=== PATIENT | female | born 1995 | race Caucasian/White ===

== ENCOUNTER 2016-11-16 14:50 | Inpatient (IN) ==
[2016-11-16] MEDS ORDERED: MEPERIDINE 50 MG/1 ML VIAL IV PRN (15:10)
[2016-11-16 15:30] LABS: Basophils % 0.4 % (0.0-0.8); Eosinophils # 0.1 10*3/uL (0.0-0.87); Eosinophils % 0.9 % (0.00-10.9); Hematocrit 34.2 VOL% (35.7-47.0); Hemoglobin 11.6 GM/DL (12.0-16.0); Immature Granulocytes % 0.8 %; Immature Granulocytes Absolute 0.07 #; Lymphocytes # 1.6 10*3/uL (1.4-4.0); Lymphocytes % 18.4 % (21.3-54.2); Mean Corpuscular HGB Conc 33.9 GM/DL (32-36); Mean Corpuscular Hemoglobin 26 PG (27-34); Mean Corpuscular Volume 77.7 FL (87-102); Mean Platelet Volume 11.4 FL (9.6-12.0); Monocytes # 0.7 10*3/uL (0.11-0.8); Monocytes % 8.3 % (1.7-12.7); Neutrophils % 71.2 % (38.7-73.9); Platelet Count 227 T/CUMM (130-400); Red Cell Distribution Width 13.2 % (9.3-17.3); White Blood Count 8.4 T/CUMM (4-12)
[2016-11-16] MEDS: LACTATED RINGERS 1,000 ML IV SCH ×2 (15:30→20:17)
[2016-11-16 16:09] LABS: Alanine Aminotransferase 24 U/L (13-56); Albumin 2.6 G/DL (3.4-5.0); Alkaline Phosphatase 139 U/L (45-117); Aspartate Amino Transferase 18 U/L (0-37); Bilirubin,Total < 0.39 MG/DL (0.2-1.0); Blood Urea Nitrogen 10 MG/DL (7-18); Calcium 8.6 MG/DL (8.5-10.1); Glucose 104 MG/DL (74-106); Osmolality,Calculated 275.5 MOS/KG (273-304); Sodium 139 MMOL/L (136-145); Total Protein 6.2 G/DL (6.4-8.3); Uric Acid 4.2 MG/DL (2.6-6.0)
[2016-11-16] MEDS ORDERED: DINOPROSTONE VAG GEL 10 MG SYRINGE VAG ONE (16:38)
--- NOTE | 2016-11-16 17:06 | OB/GYN History & Physical ---
History of Present Illness Chief complaint: In for elective induction of labor due to term . History of present illness: Ms. Quezada is a 21 year old female who is a 2 para 1 AB 1. Her RUPAL is for estimated gestational age of 39 weeks. The patient presents for elective induction of labor. The risk and benefits have been thoroughly discussed with this patient and significant other, plan of care has been discussed with Dr. Yañez and all parties are in agreement with plan. The patient and her care at the [facility] and she received routine care her course was uneventful. labs: She is O+, antibody screen is negative, RPR is nonreactive, hepatitis B negative, HIV is negative, GC chlamydia cultures negative, and GBS culture negative. Review of systems is negative with exception of above. Home Medications Medication Instructions Recorded Confirmed Type Vit No.124/Iron/Folic 1 tablet PO DAILY MDD one tab 08/23/16 08/23/16 History [ Vitamin Tablet] Allergies Allergy/AdvReac Type Severity Reaction Status Date / Time bacitracin Allergy Mild RASH Verified 10/08/16 21:50 [From Neosporin ([id number])] Neomycin Allergy Mild RASH Verified 10/08/16 21:50 [From Neosporin ([id number])] polymyxin B Allergy Mild RASH Verified 10/08/16 21:50 [From Neosporin ([id number])] 12 point system: reviewed and no additional remarkable complaints except as stated Medical,Surgical,& Family Hx - Medical History Psychological: History of: Anxiety Disorders Neurology: History of: Migraine, Seizures (at age 12) Reproductive: History of: Complication (MISCARRIAGE X1), Sexually Transmitted Disorders (2013 chlamydia) - Surgical History Reproductive Surgeries: Surgical HX of;: Dilation and Curettage () Orthopedic Surgeries: Surgical HX of;: Orthopedic Surgery (right knee scope) - Family History Family History: Reports;: Family Cancer (maternal and paternal grandmother), Family Diabetes (paternal grandmother), Family Heart Disease (paternal grandfather), Family Stroke (maternal grandmother) - Social History Smoking Status: Former smoker Marital Status: Single Lives With:: Significant Other 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 capacity: 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 General appearance: no acute distress - Antepartum / Post Antepartum Exam Cervix - Dilatation: 2 cm Effacement: 50% Station: -2 Rupture: Intact Presentation: Vertex Heart Rate: 140 Breast: bilateral: normal Abdomen obstetrics: Present: bowel sounds normal Vagina: Present: normal moisture Uterus exam: Present: enlarged Anus/Rectum: Present: normal perianal skin - Respiratory Respiratory exam: Present: clear to auscultation bilaterally - Cardiovascular Cardiovascular exam: Present: regular rate and rhythm - GI/Abdominal GI/Abdominal exam: Present: normal bowel sounds, soft - Extremities Exam Extremities exam: Present: normal inspection - Back Exam Back exam: Present: normal inspection - Neurological Exam Neurological exam: Present: alert, oriented X3 - Psychiatric Psychiatric exam: Present: normal affect, normal mood - Skin Skin exam: Present: normal color, warm Assessment and Plan (1) Term Status: Acute Assessment and plan: Admit IV fluids Prostin gel per protocol IV Pitocin per protocol if indicated Artificial rupture membranes when appropriate Internal monitors if indicated Epidural anesthesia if desired Anticipate . Current Visit: Yes Results - Labs CBC & BMP: 11/16/16 15:24 11/16/16 15:23
[2016-11-16] MEDS ORDERED: FAMOTIDINE 20 MG TABLET PO ONE (17:57)
[2016-11-16] MEDS ORDERED: CITRIC ACID/SODIUM CITRATE 30 ML UDCUP PO ONE (17:57)
[2016-11-16] MEDS ORDERED: PROMETHAZINE 25 MG/1 ML VIAL IM ONE (17:57)
[2016-11-16] MEDS ORDERED: LACTATED RINGERS 1,000 ML IV ONE (17:57)
[2016-11-16] MEDS ORDERED: ePHEDrine 50 MG/ML AMP IV PRN (17:57)
[2016-11-16] MEDS ORDERED: hydrOXYzine HCL 25 MG/1 ML VIAL IM PRN (17:57)
[2016-11-16] MEDS ORDERED: diphenhydrAMINE 50 MG/1 ML VIAL IV PRN ×2 (17:57)
[2016-11-16] MEDS ORDERED: FAMOTIDINE 20 MG/2 ML VIAL IV ONE (18:46)
[2016-11-16] MEDS: fentaNYL 2 MCG/ROPIV 0.2% EPID 150 ML EPIDURAL SCH (19:45)
[2016-11-17] MEDS: LACTATED RINGERS 1,000 ML IV SCH ×2 (02:22→09:49)
[2016-11-17] MEDS ORDERED: OXYTOCIN/LR 20 UNIT/1,000 ML BAG IV SCH (03:00)
[2016-11-17] MEDS: ONDANSETRON 4 MG/2 ML VIAL IV PRN ×2 (04:25→10:52)
[2016-11-17] MEDS: fentaNYL 2 MCG/ROPIV 0.2% EPID 150 ML EPIDURAL SCH (05:17)
[2016-11-17] MEDS ORDERED: ceFAZolin 2,000 MG in PREMIX 1 EACH IV ONE (09:03)
[2016-11-17] MEDS ORDERED: OXYTOCIN/LR 30 UNIT/1,000 ML BAG IV ONE (12:25)
[2016-11-17] MEDS ORDERED: OXYTOCIN 10 UNIT/ML VIAL IM ONE (12:25)
[2016-11-17] MEDS ORDERED: OXYTOCIN 10 UNIT/ML VIAL ONE (12:29)
--- NOTE | 2016-11-17 13:34 | Progress Note ---
Family Medicine PN Sub Interval history: This patient was examined at approximately 7:30 AM, 8 cm dilated, epidural was reevaluated. Patient IUPC was placed inside, IV Pitocin was reinitiated. Approximately 12:00 this patient was still 8 cm with noticeable It. At this time she is prepared for primary section secondary to failure to progress Exam (Progress Note) - Constitutional Vitals: Period Temp Pulse Resp BP Sys/Ramos Pulse Ox Last 24 Hr 97.4 F-99.1 F 108-123 18-20 121-149/58-89 100 Results - Labs CBC & BMP: 11/16/16 15:24 11/16/16 15:23
--- NOTE | 2016-11-17 13:35 | Operative Note ---
Date of procedure: 11/17/16 Procedure: Preoperative diagnosis: Failure to progress, Postoperative diagnosis: Same Anesthesia:[] Regional anesthesia Estimated blood loss: [] Less than 400 cc Surgeon: Dr. Yañez Findings: [] Male infant, Apgars 8 at 1 minute 9 at 5 minutes 8 pounds and 3 ounces, delivery time was 1300 hrs., occiput posterior with noticeable Complications: None Procedure: Low transverse section The patient was taken to the operating suite heart tones were obtained prior to and after regional anesthesia was obtained. She was placed in supine position her abdomen was prepped and draped in usual manner for major abdominal surgery. Through an abdominal incision the skin, subcutaneous, fascial layer and peritoneal the abdomen was entered. The bladder flap was created and a low transverse incision was made.. Fluid was clear and normal amount X, Apgars, the placenta was delivered and sent to lab for further evaluation. Injected with intrauterine Pitocin. The first layer of the uterus was closed with #1 Vicryl in a continuous locking manner. Close to imbricate the first layer with #1 Vicryl. The peritoneum was approximated with #2-0 Vicryl.[] All the last sponges and instruments were accounted for -2.) #2-0 Vicryl. Fascia was approximated with #0-0 Maxon.. The skin was approximated with cornelius. She tolerated procedure well and was taken to recovery room in stable condition. Surgeon / Physician: Santiago Yañez Results - Labs CBC & BMP: 11/16/16 15:24 11/16/16 15:23 Discharge Plan - Discharge Medications No Action Vit No.124/Iron/Folic [ Vitamin Tablet] 1 tablet PO DAILY MDD one tab - Follow Up or Referral - Forms/Instructions
[2016-11-17] MEDS ORDERED: ACETAMINOPHEN 325 MG TABLET PO PRN (13:36)
[2016-11-17] MEDS ORDERED: MAGNESIUM HYDROXIDE SUSP 30 ML UDCUP PO PRN (13:36)
[2016-11-17] MEDS ORDERED: SIMETHICONE CHEW 80 MG TABLET PO PRN (13:36)
[2016-11-17] MEDS ORDERED: ONDANSETRON 4 MG/2 ML VIAL IV PRN (13:36)
[2016-11-17] MEDS ORDERED: OXYTOCIN/LR 20 UNIT/1,000 ML BAG IV ONE (13:36)
--- NOTE | 2016-11-17 13:41 | Anesthesia Post-Op ---
Anesthesia Post OP - Post Ansesthetic Evaluation Patient seen in post op: Yes Resp: within normal limits CV: within normal limits Mental: within normal limits Temp: within normal limits [id number]: within normal limits Nausea and Vomiting: within normal limits Pain: within normal limits
[2016-11-17] MEDS ORDERED: MORPHINE 10 MG/10 ML VIAL ONE (13:44)
[2016-11-17] MEDS ORDERED: fentaNYL 100 MCG/2 ML VIAL ONE (13:44)
[2016-11-17 13:50] LABS: Cord Venous Blood HCO3 22.5 MMOL/L; Cord Venous Blood PCO2 41.4 MMHG; Cord Venous Blood PO2 22.3 MMHG
[2016-11-17] MEDS ORDERED: LACTATED RINGERS 1,000 ML IV SCH (14:00)
[2016-11-17] MEDS ORDERED: RHO(D) IMMUNE GLOBULIN 300 MCG SYRINGE IM ONE (14:00)
[2016-11-17] MEDS: HYDROmorphone 2 MG/1 ML VIAL IV PRN (15:13)
[2016-11-17] MEDS: ceFAZolin 2,000 MG in PREMIX 1 EACH IV SCH (17:37)
[2016-11-17 21:23] LABS: Basophils % 0.3 % (0.0-0.8); Eosinophils % 0.1 % (0.00-10.9); Hematocrit 28.8 VOL% (35.7-47.0); Hemoglobin 9.4 GM/DL (12.0-16.0); Immature Granulocytes % 0.8 %; Immature Granulocytes Absolute 0.12 #; Lymphocytes # 1.5 10*3/uL (1.4-4.0); Lymphocytes % 10.3 % (21.3-54.2); Mean Corpuscular HGB Conc 32.6 GM/DL (32-36); Mean Corpuscular Hemoglobin 26 PG (27-34); Mean Corpuscular Volume 80.2 FL (87-102); Mean Platelet Volume 10.9 FL (9.6-12.0); Monocytes # 1.3 10*3/uL (0.11-0.8); Monocytes % 8.5 % (1.7-12.7); Neutrophils # 11.9 10*3/uL (1.4-7.4); Platelet Count 173 T/CUMM (130-400); Red Blood Count 3.59 MC/CUMM (3.8-5.5); Red Cell Distribution Width 13.6 % (9.3-17.3); White Blood Count 14.9 T/CUMM (4-12)
[2016-11-18] MEDS: HYDROmorphone 2 MG/1 ML VIAL IV PRN (00:10)
[2016-11-18] MEDS: DOCUSATE SODIUM 100 MG CAPSULE PO SCH ×3 (01:14→20:24)
[2016-11-18] MEDS: ceFAZolin 2,000 MG in PREMIX 1 EACH IV SCH (02:00)
[2016-11-18] MEDS: IBUPROFEN 800 MG TABLET PO PRN ×2 (04:10→13:33)
[2016-11-18 06:53] LABS: Basophils # 0.1 10*3/uL (0.0-0.2); Basophils % 0.4 % (0.0-0.8); Eosinophils # 0.1 10*3/uL (0.0-0.87); Eosinophils % 0.5 % (0.00-10.9); Hematocrit 26.6 VOL% (35.7-47.0); Hemoglobin 8.8 GM/DL (12.0-16.0); Immature Granulocytes % 0.7 %; Immature Granulocytes Absolute 0.09 #; Lymphocytes # 1.5 10*3/uL (1.4-4.0); Lymphocytes % 11.3 % (21.3-54.2); Mean Corpuscular HGB Conc 33.1 GM/DL (32-36); Mean Corpuscular Hemoglobin 26 PG (27-34); Mean Corpuscular Volume 79.2 FL (87-102); Mean Platelet Volume 11.3 FL (9.6-12.0); Monocytes # 1.3 10*3/uL (0.11-0.8); Monocytes % 9.5 % (1.7-12.7); Neutrophils # 10.3 10*3/uL (1.4-7.4); Neutrophils % 77.6 % (38.7-73.9); Platelet Count 151 T/CUMM (130-400); Red Blood Count 3.36 MC/CUMM (3.8-5.5); Red Cell Distribution Width 13.8 % (9.3-17.3); White Blood Count 13.3 T/CUMM (4-12)
[2016-11-18] MEDS: MULTIVITAMIN (PRENATAL) TABLET PO SCH (08:23)
[2016-11-18] MEDS: FERROUS SULFATE 325 MG TABLET PO SCH ×2 (08:23→20:24)
--- NOTE | 2016-11-18 12:08 | Progress Note ---
Family Medicine PN Sub Interval history: Postoperative day #1 Status post section secondary to his failure to progress Abdomen soft positive bowel sounds, incision site intact Extremities well with no limits and neurologic grossly intact assessment plan Continue with present therapy Possible discharge in a.m. Exam (Progress Note) - Constitutional Vitals: Period Temp Pulse Resp BP Sys/Ramos Pulse Ox Last 24 Hr 97 F-98.9 F 96-115 18-20 114-143/60-81 96-98 Results - Labs CBC & BMP: 11/18/16 06:45 11/16/16 15:23 Quality Measures - VTE Contraindication to Pharmacological VTE Prophylaxis: Clinical assessment deems Pt at low risk, no prophalaxis needed
[2016-11-19] MEDS: MULTIVITAMIN (PRENATAL) TABLET PO SCH (08:11)
[2016-11-19] MEDS: FERROUS SULFATE 325 MG TABLET PO SCH (08:11)
[2016-11-19] MEDS: DOCUSATE SODIUM 100 MG CAPSULE PO SCH (08:11)
--- NOTE | 2016-11-19 10:08 | OB/GYN Progress Note ---
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 Positive flatus. 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
[2016-11-19 12:45] VITALS: BP 116/71
[2016-11-19] MEDS: IBUPROFEN 800 MG TABLET PO PRN (13:37)
--- NOTE | 2016-11-19 13:44 | Discharge Summary ---
Hospital Course - Hospital Course Hospital Course: 21-year-old 1 who presented for induction of labor. Patient progressed into labor to 8 cm and then developed severe It. She underwent his primary section without any complication. Remain in hospital for 2 postoperative days. Incision sites intact patient's passing gas no bowel movement as of this moment. Have encouraged increasing fiber fluids and diminished the amount of analgesics. Patient return to office in 2 weeks for further postoperative care Specialty Discharge - Follow Up or Referrals Follow up with: Santiago Yañez MD [Primary Care Provider] - 2 Weeks Discharge Plan - Discharge Data Condition at Discharge: Stable Discharge Diet: advance to your usual diet Activity: resume usual activities as tolerated Hygiene: no restrictions, may shower Weight Bearing at Discharge: weight bear as tolerated Driving: not until seen by doctor Contact your physician if you experience:: fever over 101, Bleeding - Discharge Medications New HYDROcodone/ACETAMIN 5-325 [Ravia 5-325] 2 tablet PO Q6H PRN #45 tablet PRN Reason: Pain Severe (8-10) Ibuprofen Tab [Motrin Tab] 800 mg PO Q8H PRN #60 tablet PRN Reason: Pain Severe (8-10) Ferrous Sulfate Tab [Feosol Original Tab] 325 mg PO BID #60 tablet No Action Vit No.124/Iron/Folic [ Vitamin Tablet] 1 tablet PO DAILY MDD one tab - Follow Up or Referral Follow Up: Santiago Yañez MD [Primary Care Provider] - 2 Weeks - Forms/Instructions Instructions: Section (DC), Depression (GEN), Perineal Care (DC), Bleeding (DC) Exam - Constitutional Vitals: Period Temp Pulse Resp BP Sys/Ramos Pulse Ox Last 24 Hr 97.1 F-98.7 F 99-110 18-20 116-137/60-75 97-99 DS: Provider Date of admission: 11/16/16 15:10 Primary care physician: Santiago Yañez MD Attending physician on admission: Santiago Yañez MD Consults: 11/16/16 15:10 Consult to Anesthesiology [CONS] Routine Consulting Provider: Reason for Anesthesiology: Epidural Consult Comment: Epidural for pain managment 11/17/16 13:38 Consult to Cut Off Tender Glass [CONS] Routine Consult Cut Off Tender Glass: Breast Feeding Discharging clinician: Santiago Yañez MD
[2016-11-19] MEDS ORDERED: MAGNESIUM CITRATE 300 ML BOTTLE PO ONE (14:03)
[2016-11-19] MEDS ORDERED: DIPH/TET/ACEL PERT BOOSTER VACCINE 0.5 ML VIAL IM ONE (14:30)
== END 2016-11-19 16:45 | disposition home or self-care (01) | DRG 540 ==
LOC: N.LDOUT 14:50 → N.LD 14:55 → N.OB 11-17 18:44
PROVIDERS: ADMIT Obstetrics & Gynecology; ATTEND Obstetrics & Gynecology
PROC: LDCSECT (ICD-10-PCS; 2016-11-17 12:50)

== ENCOUNTER 2020-10-26 05:35 | Inpatient (IN) ==
[2020-10-26] MEDS ORDERED: FAMOTIDINE 20 MG/2 ML VIAL IV ONE (06:48)
[2020-10-26] MEDS ORDERED: ceFAZolin 2,000 MG/50 ML DUPLEX IV ONE (06:48)
[2020-10-26] MEDS ORDERED: CITRIC ACID/SODIUM CITRATE 30 ML UDCUP PO ONE (06:48)
[2020-10-26 06:55] LABS: Basophils % 0.5 % (0.0-0.8); Eosinophils # 0.1 10*3/uL (0.0-0.87); Eosinophils % 0.9 % (0.00-10.9); Hematocrit 34.8 VOL% (35.7-47.0); Hemoglobin 11.9 GM/DL (12.0-16.0); Immature Granulocytes % 0.7 %; Immature Granulocytes Absolute 0.05 #; Lymphocytes # 2.1 10*3/uL (1.4-4.0); Lymphocytes % 28.4 % (21.3-54.2); Mean Corpuscular HGB Conc 34.2 GM/DL (32-36); Mean Corpuscular Volume 85.9 FL (87-102); Mean Platelet Volume 11.4 FL (9.6-12.0); Monocytes % 9.2 % (1.7-12.7); Neutrophils % 60.3 % (38.7-73.9); Platelet Count 174 T/CUMM (130-400); Red Blood Count 4.05 MC/CUMM (3.8-5.5); Red Cell Distribution Width 12.7 % (9.3-17.3); White Blood Count 7.5 T/CUMM (4-12)
[2020-10-26 07:09] LABS: Alanine Aminotransferase < 9 U/L (13-56); Albumin 2.5 G/DL (3.4-5.0); Alkaline Phosphatase 118 U/L (45-117); Aspartate Amino Transferase 10 U/L (0-37); Bilirubin,Total < 0.39 MG/DL (0.2-1.0); Blood Urea Nitrogen 8 MG/DL (7-18); Calcium 8.4 MG/DL (8.5-10.1); Carbon Dioxide 20 MMOL/L (21-32); Estimated Glom Filtration Rate 155 ML/MIN; Glucose 76 MG/DL (74-106); Osmolality,Calculated 269.8 MOS/KG (273-304); Potassium 3.6 MMOL/L (3.5-5.1); Sodium 137 MMOL/L (136-145); Total Protein 6.4 G/DL (6.4-8.2)
[2020-10-26] MEDS ORDERED: miSOPROStoL 200 MCG TABLET ONE (08:19)
[2020-10-26] MEDS ORDERED: METHYLERGONOVINE 0.2 MG/1 ML AMP ONE (08:19)
[2020-10-26] MEDS ORDERED: CARBOPROST TROMETHAMINE 250 MCG/ML AMP IM ONE (08:19)
[2020-10-26] MEDS ORDERED: TRANEXAMIC ACID 1,000 MG/10 ML VIAL ONE (08:19)
[2020-10-26] MEDS ORDERED: OXYTOCIN/LR 20 UNIT/1,000 ML BAG IV ONE ×4 (09:05→10:48)
[2020-10-26] MEDS ORDERED: BUPIVACAINE SPINAL 0.75% 2 ML AMP SPINAL ONE (09:38)
[2020-10-26] MEDS ORDERED: ONDANSETRON 4 MG/2 ML VIAL ONE (09:38)
[2020-10-26] MEDS ORDERED: PHENYLEPHRINE 1 MG/10 ML SYRINGE IV ONE (10:01)
[2020-10-26] MEDS ORDERED: MIDAZOLAM 2 MG/2 ML VIAL ONE ×2 (10:07→10:43)
[2020-10-26] MEDS ORDERED: KETAMINE 500 MG/10 ML VIAL ONE (10:07)
[2020-10-26] MEDS ORDERED: fentaNYL 100 MCG/2 ML VIAL ONE (10:16)
[2020-10-26] MEDS ORDERED: METHYLERGONOVINE 0.2 MG/1 ML AMP IM STA (10:23)
[2020-10-26] MEDS ORDERED: propofoL 200 MG/20 ML VIAL IV ONE (10:27)
[2020-10-26] MEDS ORDERED: LIDOCAINE 2% 5 ML VIAL ONE (10:27)
[2020-10-26 10:33] LABS: Cord Venous Blood HCO3 23.1 MMOL/L; Cord Venous Blood PCO2 38.8 MMHG; Cord Venous Blood PO2 41.3 MMHG
[2020-10-26 10:36] LABS: Bacteria,Urine Occasional /HPF (Few); Bilirubin,Urine Negative (Negative); Blood, Urine Negative (Negative); Glucose,Urine (UA) Negative (Negative); Ketones,Urine Negative (Negative); Nitrite,Urine Negative (Negative); Protein,Urine Negative; RBC,Urine <1 /HPF (0-4); Squamous Epithelial Cell,Urine Occasional /HPF (0-10); Urine Appearance CLEAR (Clear); Urine Color Colorless (Yellow); Urine Specific Gravity 1.005 (1.001-1.035); Urine Urobilinogen < 2.0 EU/DL (0.2-1.0)
[2020-10-26] MEDS ORDERED: ONDANSETRON 4 MG/2 ML VIAL IV PRN (10:48)
[2020-10-26] MEDS ORDERED: SIMETHICONE CHEW 80 MG TABLET PO PRN (10:48)
[2020-10-26] MEDS ORDERED: RHO(D) IMMUNE GLOBULIN 300 MCG SYRINGE IM ONE (10:48)
[2020-10-26] MEDS ORDERED: ACETAMINOPHEN 325 MG TABLET PO PRN (10:48)
[2020-10-26] MEDS: KETOROLAC 30 MG/1 ML VIAL IV SCH ×2 (13:22→19:15)
[2020-10-26] MEDS: ACETAMINOPHEN 500 MG TABLET PO SCH ×2 (13:24→19:15)
[2020-10-26] MEDS: LACTATED RINGERS 1,000 ML IV SCH (18:13)
[2020-10-26] MEDS: DOCUSATE SODIUM 100 MG CAPSULE PO SCH (22:29)
[2020-10-27] MEDS: ACETAMINOPHEN 500 MG TABLET PO SCH ×2 (01:04→06:35)
[2020-10-27] MEDS: KETOROLAC 30 MG/1 ML VIAL IV SCH ×2 (01:04→06:35)
[2020-10-27 05:35] LABS: Basophils % 0.3 % (0.0-0.8); Eosinophils # 0.1 10*3/uL (0.0-0.87); Eosinophils % 0.8 % (0.00-10.9); Hematocrit 27.5 VOL% (35.7-47.0); Hemoglobin 9.5 GM/DL (12.0-16.0); Immature Granulocytes % 0.4 %; Immature Granulocytes Absolute 0.04 #; Lymphocytes # 1.7 10*3/uL (1.4-4.0); Lymphocytes % 18.6 % (21.3-54.2); Mean Corpuscular HGB Conc 34.5 GM/DL (32-36); Mean Corpuscular Volume 86.2 FL (87-102); Mean Platelet Volume 11.7 FL (9.6-12.0); Monocytes % 8.6 % (1.7-12.7); Neutrophils % 71.3 % (38.7-73.9); Platelet Count 131 T/CUMM (130-400); Red Blood Count 3.19 MC/CUMM (3.8-5.5); Red Cell Distribution Width 12.8 % (9.3-17.3); White Blood Count 8.9 T/CUMM (4-12)
[2020-10-27 05:55] LABS: Hypochromasia 1+; Microcytosis 1+; Platelet Estimate Adequate
[2020-10-27] MEDS: IBUPROFEN 800 MG TABLET PO PRN ×2 (06:36→21:09)
[2020-10-27] MEDS: LACTATED RINGERS 1,000 ML IV SCH ×2 (06:36→06:37)
[2020-10-27] MEDS: DOCUSATE SODIUM 100 MG CAPSULE PO SCH ×2 (08:58→21:09)
[2020-10-27] MEDS: MAGNESIUM HYDROXIDE SUSP 30 ML UDCUP PO PRN ×2 (08:58→21:09)
[2020-10-27] MEDS: FERROUS SULFATE 325 MG TABLET PO SCH (08:59)
[2020-10-27] MEDS: METOCLOPRAMIDE 10 MG TABLET PO SCH ×2 (09:00→16:41)
[2020-10-27] MEDS ORDERED: SERTRALINE 50 MG TABLET PO SCH (09:00)
[2020-10-27] MEDS: MULTIVITAMIN (PRENATAL) TABLET PO SCH (09:15)
[2020-10-27] MEDS: oxyCODONE/ACETAMINOPHEN 5-325 MG TABLET PO PRN ×2 (11:30→18:25)
[2020-10-28] MEDS: METOCLOPRAMIDE 10 MG TABLET PO SCH (01:06)
[2020-10-28] MEDS: IBUPROFEN 800 MG TABLET PO PRN (03:53)
[2020-10-28 08:10] VITALS: BP 112/68
[2020-10-28] MEDS: FERROUS SULFATE 325 MG TABLET PO SCH (09:35)
[2020-10-28] MEDS: DOCUSATE SODIUM 100 MG CAPSULE PO SCH (09:35)
[2020-10-28] MEDS: MULTIVITAMIN (PRENATAL) TABLET PO SCH (09:35)
== END 2020-10-28 12:17 | disposition home or self-care (01) | DRG 540 ==
LOC: N.LD 05:35 → N.OB 14:41
PROVIDERS: ADMIT Obstetrics & Gynecology; ATTEND Obstetrics & Gynecology
PROC: LDCSECT (ICD-10-PCS; 2020-10-26 09:38)